=== PATIENT | female | born 1980 | race Caucasian/White ===

== ENCOUNTER 2020-10-13 19:50 | Observation (INO) | payer OTHER ==
[~2020-10-13] VITALS: Ht 170.2 cm; Wt 111.1 kg
[~2020-10-13 19:50] MED LIST: ASPIRIN CHEWABL81 MG PO; COLACE 100MG C100 MG PO; ELIQUIS5 MG PO; HYDROCODON-ACE1 EAC4 PO; IBUPROFEN PO; IBUPROFEN400 MG PO; IBUPROFEN600 MG PO; NORCO 5-325 TA1 EACH PO
[2020-10-13 21:21] LABS: HEMOGLOBIN 9.3 gm/dl (12.3-15.3); RED BLOOD COUNT 4.36 M/UL (4.00-5.10); WHITE BLOOD COUNT 10.1 K/UL (4.5-11.0)
[2020-10-13 21:42] LABS: BUN/CREATININE RATIO 8 (0-10)
[2020-10-13] MEDS ORDERED: DILTIAZEM 12HR120 MG PO (23:34)
[2020-10-13] MEDS ORDERED: NITROSTAT0.4 MG SL (23:35)
[2020-10-13] MEDS ORDERED: XARELTO20 MG PO (23:35)
[2020-10-15] MEDS ORDERED: ASPIRIN EC81 MG PO (13:28)
--- NOTE | 2020-10-15 14:28 | NUR ---
NOTIFIED MD OF TACHYCARDIA. PT IS IN NO DISTRESS AND RHYTHM IS STILL SINUS. MD RECOMMEND THAT WE DO NOTHING AT THIS TIME, BUT TO NOTIFY OF ANY OTHER CHNAGES.
[2020-10-22 17:08] LABS: DRVVT 49.7 sec (0.0-47.0); DRVVT CONFIRM 1.2 ratio (0.8-1.2); DRVVT MIX 41.6 sec (0.0-40.4); PT 11.1 sec (9.1-12.0); PT 1:1NP 10.6 sec (9.1-12.0); PTT-LA 32.6 sec (0.0-51.9); THROMBIN NEUTRALIZATION 17.9 sec (0.0-23.0); THROMBIN TIME >150.0 sec (0.0-23.0); THROMBIN TIME MIX >150.0 sec (0.0-23.0)
== END 2020-10-16 15:21 | disposition home or self-care (01) ==
LOC: ER1 19:50 → CDU 22:55 → MED SURG 4 22:55
PROVIDERS: Physician Assistant; ADMIT Internal Medicine
DX: R07.89 Other chest pain (principal); U07.1 COVID-19; R77.8 Other specified abnormalities of plasma proteins; I10 Essential (primary) hypertension; D47.3 Essential (hemorrhagic) thrombocythemia; D64.9 Anemia, unspecified; R00.0 Tachycardia, unspecified; K59.09 Other constipation; E66.9 Obesity, unspecified; Z68.38 Body mass index [BMI] 38.0-38.9, adult; Z86.711 Personal history of pulmonary embolism; Z88.2 Allergy status to sulfonamides; Z88.8 Allergy status to other drugs, medicaments and biological substances; Z91.040 Latex allergy status; Z91.14 Patient's other noncompliance with medication regimen; Z87.891 Personal history of nicotine dependence; Z79.01 Long term (current) use of anticoagulants; Z79.82 Long term (current) use of aspirin; Z79.899 Other long term (current) drug therapy
CPT/HCPCS: ECHO; 36415; 78452; 80053; 80061; 82550; 82553; 83874; 84484; 85025; 85610; 85611; 85730; 93005; 93017; 93306; 96374; 96376; 99285; A9502; G0378; J1644; J2785; Q9967; U0002

== ENCOUNTER 2022-05-24 17:07 | Emergency (ER) | payer OTHER ==
[~2022-05-24 17:07] MED LIST changes: +ASPIRIN EC81 MG PO; +DILTIAZEM 12HR120 MG PO; +NITROSTAT0.4 MG SL; +XARELTO20 MG PO
[2022-05-24 18:32] LABS: HEMOGLOBIN 13.3 gm/dl (12.3-15.3); RED BLOOD COUNT 4.92 M/UL (4.00-5.10); WHITE BLOOD COUNT 9.3 K/UL (4.5-11.0)
[2022-05-24 18:54] LABS: BUN/CREATININE RATIO 11 (0-10)
== END 2022-05-24 22:54 | disposition home or self-care (01) ==
LOC: ER1 17:07
PROVIDERS: Physician Assistant Medical
DX: R07.89 Other chest pain (principal); I25.2 Old myocardial infarction; Z86.711 Personal history of pulmonary embolism; Z20.822 Contact with and (suspected) exposure to COVID-19
CPT/HCPCS: 80053; 82550; 82553; 84484; 85025; 85379; 85610; 93005; 99285; Q9967; U0002